=== PATIENT | male | born 2000 ===

== ENCOUNTER 2020-08-26 01:57 | Emergency (ER) | payer OTHER, MEDICAID ==
[~2020-08-26] VITALS: Ht 170.2 cm; Wt 60.0 kg
[2020-08-26] MEDS ORDERED: ONDANSETRON 2MG/ML, 2ML ONE (02:00)
--- NOTE | 2020-08-26 02:05 | NUR ---
THIS IS A 20M BIB EMS FROM [facility] FOR ETOH AND GLF AFTER SLIDING OUT OF WHEEL CHAIR. PT ARRIVES TO ED COVERED IN VOMIT AND ACTIVELY VOMITING. PER EMS PT GOT 12.5 OF PHENERGAN AND 250 NS GUSSET STITCHER VIA 20G IN R WRIST. LAC NOTED TO POSTERIOR SCALP. ERP TO BEDSIDE FOR EVAL AND POC. PT NOT RESPONSIVE TO VERBAL STIMULI AT THIS TIME BUT RESPONDS TO PAIN. PT CONNECTED TO MONITORING VSS. PT CONTINUES TO MAINTAIN OWN AIRWAY AT THIS TIME.
[2020-08-26] MEDS ORDERED: ONDANSETRON 2MG/ML, 2ML IVPush ONE (02:30)
--- NOTE | 2020-08-26 03:20 | NUR ---
PT RETURNED FROM CT AT THIS TIME.
--- NOTE | 2020-08-26 03:23 | NUR ---
LIANE AT BEDSIDE FOR STAPLE PLACEMENT AT THIS TIME. PT RESTING ON GURNEY. CONNECTED TO BP AND PULSE OX
[2020-08-26 04:44] VITALS: BP 97/52
--- NOTE | 2020-08-26 04:47 | NUR ---
PT SLEEPING, RESP EVEN/UNLABORED, PT DIFFICULT TO ARROUSE AT THIS TIME. WILL CONTINUE TO MONITOR
--- NOTE | 2020-08-26 14:04 | NUR ---
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 requesting work note. pt verified his name lali HUBBARD. work note given per request
== END 2020-08-26 05:57 | disposition home or self-care (01) ==
LOC: ED 05:40
DX: S06.0X0A Concussion without loss of consciousness, initial encounter (principal); S01.01XA Laceration without foreign body of scalp, initial encounter; F10.129 Alcohol abuse with intoxication, unspecified; R11.2 Nausea with vomiting, unspecified; W18.30XA Fall on same level, unspecified, initial encounter; Y93.89 Activity, other specified; Y92.89 Other specified places as the place of occurrence of the external cause; Y99.8 Other external cause status
CPT/HCPCS: 12032; 70450; 72125; 99285